=== PATIENT | male | born 1995 | race Two or more races ===

== ENCOUNTER 2020-06-07 16:14 | Emergency (ER) | payer MEDICAID ==
[~2020-06-07] VITALS: Ht 177.8 cm; Wt 75.0 kg
[2020-06-07] MEDS ORDERED: IBUPROFEN 600MG TABLET PO ONE (18:30)
[2020-06-07 18:51] VITALS: BP 120/70
== END 2020-06-07 18:52 | disposition left against medical advice (07) ==
LOC: ER 16:14
DX: L03.114 Cellulitis of left upper limb (principal)
CPT/HCPCS: 73030; 73080; 99284